=== PATIENT | female | born 1990 | race Caucasian/White ===

== ENCOUNTER 2017-11-07 15:41 | Emergency (ER) | payer MEDICAID ==
[~2017-11-07] VITALS: Ht 154.9 cm; Wt 56.8 kg
[2017-11-07 16:28] VITALS: BP 124/79
--- NOTE | 2017-11-07 16:36 | NUR ---
PT AMBULATED TO [facility]
--- NOTE | 2017-11-07 16:37 | NUR ---
PATIENT PRESENTS TO ED WITH C/O COUGH, SOB, CP, SORE THROAT X 2 DAYS; ADMITTED ON [place] LAST MONTH FOR 2 DAYS FOR SOB HX; ASTHMA, BRONCHITIS RX; QVAR INHALER; DENIES N/V/D; SKIN IS PINK/WARM/DRY; AAOX4 WITH EVEN AND STEADY GAIT; BL EXP WHZ, RHONCHI; HR EVEN AND REGULAR; PT DENIES ANY FEVER AT THIS TIME; PATIENT STATES PAIN OF 8/10 AT THIS TIME; VSS; ER MD MADE AWARE OF PT STATUS.
[2017-11-07] MEDS ORDERED: predniSONE 20 MG TAB PO ONE (16:40)
[2017-11-07] MEDS ORDERED: ALBUTEROL SULFATE/IPRATROPIU 3 ML SOL IH ONE (16:40)
[2017-11-07] MEDS ORDERED: ALBUTEROL 0.083% 2.5 MG/3 ML NEBU INH ONE (16:40)
--- NOTE | 2017-11-07 16:49 | NUR ---
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
--- NOTE | 2017-11-07 16:51 | NUR ---
RT AT BEDSIDE
--- NOTE | 2017-11-07 17:45 | NUR ---
Patient being evaluated by physician at bedside.
[2017-11-07 18:03] VITALS: BP 124/79
--- NOTE | 2017-11-07 18:03 | NUR ---
Patient discharged with v/s stable. Written and verbal after care instructions given and explained. Patient alert, oriented and verbalized understanding of instructions. Ambulatory with steady gait. All questions addressed prior to discharge. ID band removed. Patient advised to follow up with PMD. Rx of PREDNISONE, ALBUTEROL, MOTRIN given. Patient educated on indication of medication including possible reaction and side effects. Opportunity to ask questions provided and answered.
== END 2017-11-07 18:03 | disposition home or self-care (01) ==
LOC: MED 15:41
DX: J45.901 Unspecified asthma with (acute) exacerbation (principal)
CPT/HCPCS: 94640; 99283; J7512; J7613; J7620

== ENCOUNTER 2017-12-28 22:36 | Emergency (ER) | payer MEDICAID ==
[~2017-12-28] VITALS: Ht 160 cm; Wt 57.2 kg
[2017-12-28 22:40] VITALS: BP 142/75
[2017-12-28] MEDS ORDERED: ALBUTEROL 0.083% 2.5 MG/3 ML NEBU INH ONE (22:40)
[2017-12-28] MEDS ORDERED: predniSONE 20 MG TAB PO ONE (22:40)
[2017-12-28] MEDS ORDERED: ALBUTEROL SULFATE/IPRATROPIU 3 ML SOL IH ONE (22:40)
--- NOTE | 2017-12-28 22:40 | NUR ---
ASSUMED CARE OF PT AT THIS TIME. C/O ACUTE ASTHMA EXACERBATION X 5 HOURS. PT IN MODERATE DISTRESS; HOWEVER, SPEAKS IN FULL SENTENCES. AAOX4 WITH EVEN AND STEADY GAIT; PATIENT STATES PAIN OF 0/10 AT THIS TIME; VSS; PATIENT POSITIONED FOR COMFORT; HOB ELEVATED; BEDRAILS UP X2; BED DOWN. ER MD MADE AWARE OF PT STATUS. WILL CONTINUE TO MONITOR.
--- NOTE | 2017-12-28 22:40 | NUR ---
AMBULATED TO ER BED 7
[2017-12-28 23:15] VITALS: BP 110/67
--- NOTE | 2017-12-28 23:15 | NUR ---
Patient discharged with v/s stable. Written and verbal after care instructions given and explained. Patient alert, oriented and verbalized understanding of instructions. Ambulatory with steady gait. All questions addressed prior to discharge. ID band removed. Patient advised to follow up with PMD. Rx of PREDNISONE AND ALBUTEROL given. Patient educated on indication of medication including possible reaction and side effects. Opportunity to ask questions provided and answered.
== END 2017-12-28 23:15 | disposition home or self-care (01) ==
LOC: MED 22:36
DX: J45.901 Unspecified asthma with (acute) exacerbation (principal)
CPT/HCPCS: 94640; 99283; J7512; J7613; J7620

== ENCOUNTER 2018-06-27 20:48 | Emergency (ER) | payer MEDICAID ==
[~2018-06-27] VITALS: Ht 154.9 cm; Wt 57.6 kg
[2018-06-27 20:52] VITALS: BP 113/78
--- NOTE | 2018-06-27 20:55 | NUR ---
PATIENT PRESENTS TO ED WITH ASTHMA EXACERBATION. PT STATES THAT FOR THE LAST 3 DAYS HER INHALER IS NOT HELPING. DENIES N/V/D; SKIN IS PINK/WARM/DRY; AAOX4 WITH EVEN AND STEADY GAIT; WHEEZING TO BILATERAL UPPER LUNGS; HR EVEN AND REGULAR; PT DENIES ANY FEVER; PATIENT STATES PAIN OF 0/10 AT THIS TIME; VSS; PATIENT POSITIONED FOR COMFORT; HOB ELEVATED; BEDRAILS UP X2; BED DOWN. ER MD MADE AWARE OF PT STATUS.
--- NOTE | 2018-06-27 20:57 | NUR ---
PT TAKEN TO BED 11
[2018-06-27] MEDS ORDERED: ALBUTEROL SULFATE/IPRATROPIU 3 ML SOL IH ONE ×3 (21:00→21:20)
--- NOTE | 2018-06-27 21:06 | NUR ---
Respiratory Therapist at bedside for respiratory intervention.
[2018-06-27] MEDS ORDERED: methylPREDNISolone SS 125 MG in WATER STERILE 2 ML IM ONE (21:10)
[2018-06-27 22:05] VITALS: BP 110/72
--- NOTE | 2018-06-27 22:06 | NUR ---
Patient discharged with v/s stable. Written and verbal after care instructions given and explained. Patient alert, oriented and verbalized understanding of instructions. Ambulatory with steady gait. All questions addressed prior to discharge. ID band removed. Patient advised to follow up with PMD. Rx of prednisone, albuterol given. Patient educated on indication of medication including possible reaction and side effects. Opportunity to ask questions provided and answered.
== END 2018-06-27 22:06 | disposition home or self-care (01) ==
LOC: MED 20:48
DX: J45.901 Unspecified asthma with (acute) exacerbation (principal)
CPT/HCPCS: 94640; 96372; 99284; J2930; J7620

== ENCOUNTER 2018-08-20 04:47 | Emergency (ER) | payer MEDICAID ==
[~2018-08-20] VITALS: Ht 154.9 cm; Wt 59.9 kg
--- NOTE | 2018-08-20 04:52 | NUR ---
Patient being evaluated by physician at bedside.
[2018-08-20] MEDS ORDERED: ALBUTEROL SULFATE/IPRATROPIU 3 ML SOL IH ONE ×2 (04:55)
[2018-08-20 04:57] VITALS: BP 125/79
--- NOTE | 2018-08-20 05:00 | NUR ---
PT BIB SELF C/O SOB, PT ON ARRIVAL RR LABORED AND TACHYPNEA, BL BS WHEEZES ON EXPIRATION THROUGHOUT. PT HAS HX OF ASTHMA. PT SPEAKING ONLY A FEW WORDS AT A TIME, AND ANXIOUS. ER MD AWARE OF PT STATUS.
--- NOTE | 2018-08-20 05:05 | NUR ---
RT AT BEDSIDE FOR TX, PT RR EVEN AND UNALBORED, PT APPEARS TO BE IN NO RESPIRATORY DISTRESS AT THIS TIME, VSS, WILL CONTINUE TO MONITOR.
[2018-08-20] MEDS ORDERED: methylPREDNISolone SS 125 MG in WATER STERILE 2 ML IM ONE (05:15)
[2018-08-20] MEDS ORDERED: ALBUTEROL 0.083% 2.5 MG/3 ML NEBU INH ONE (05:30)
--- NOTE | 2018-08-20 05:55 | NUR ---
Patient discharged with v/s stable. Written and verbal after care instructions given and explained. Patient alert, oriented and verbalized understanding of instructions. Ambulatory with steady gait. All questions addressed prior to discharge. ID band removed. Patient advised to follow up with PMD. Rx of PRENISONE, ALBUTEROL given. Patient educated on indication of medication including possible reaction and side effects. Opportunity to ask questions provided and answered.
[2018-08-20 05:56] VITALS: BP 119/80
== END 2018-08-20 05:56 | disposition home or self-care (01) ==
LOC: MED 04:47
DX: J45.901 Unspecified asthma with (acute) exacerbation (principal)
CPT/HCPCS: 36415; 71045; 87804; 94640; 96372; 99284; J2930; J7613; J7620; Q0092

== ENCOUNTER 2019-10-25 07:33 | Emergency (ER) | payer MEDICAID ==
[~2019-10-25] VITALS: Ht 154.9 cm; Wt 59.0 kg
--- NOTE | 2019-10-25 07:36 | NUR ---
Patient ambulated to bed 4. RN evaluating patient at bedside.
[2019-10-25] MEDS ORDERED: predniSONE 20 MG TAB PO ONE (07:40)
[2019-10-25] MEDS ORDERED: ALBUTEROL 0.083% 2.5 MG/3 ML NEBU INH ONE ×2 (07:40→08:30)
[2019-10-25] MEDS ORDERED: ALBUTEROL SULFATE/IPRATROPIU 3 ML SOL IH ONE ×2 (07:40→08:30)
--- NOTE | 2019-10-25 07:40 | NUR ---
29 Y/O FEMALE C/O ASTHMA EXACERBATION THAT STARTED THIS MORNING. STATES SHE WAS FEELING SOB YESTERDAY, INCREASING THROUGHOUT THE NIGHT. RR DEEP, LABORED, TACHYPNIC. AUDIBLE WHEEZING HEARD UPON INHALATION. MOIST COUGH NOTED. SITTING UPRIGHT POSITIONED FOR COMFORT, O2 SAT MONITOR PLACED ON PT. VSS MEDHX: ASTHMA ALLERIGES: CATHERINEA
--- NOTE | 2019-10-25 07:44 | NUR ---
Breathing treatment administered by respiratory therapist at bedside.
--- NOTE | 2019-10-25 08:04 | NUR ---
BREATH SOUNDS COARSE AFTER BREATHING TREATMENT FINISHED. EASIER WORK OF BREATHING. VSS. WILL CONTINUE TO MONITOR
--- NOTE | 2019-10-25 08:04 | NUR ---
POST [facility] THERAPY PLACED BACK ON SUPPLEMENTAL OXYGEN AT 2 LPM VIA YAN PYLE/RN NOTIFIED
--- NOTE | 2019-10-25 08:28 | NUR ---
Secondary breathing treatment administered by respiratory therapist at bedside.
--- NOTE | 2019-10-25 08:46 | NUR ---
SATURATION 100% ON FIO2 OF 28%/2 LPM VIA NC POST [facility]N THERAPY PLACED ON ROOM AIR [place] PYLE/RN NOTIFIED RN TO MONITOR
[2019-10-25 08:53] VITALS: BP 106/62
--- NOTE | 2019-10-25 08:54 | NUR ---
Patient discharged with v/s stable. Written and verbal after care instructions given and explained. Patient alert, oriented and verbalized understanding of instructions. Ambulatory with steady gait. All questions addressed prior to discharge. ID band removed. Patient advised to follow up with PMD. Rx of PREDNISONE AND ALBUTEROL FOR NEBULIZER given. Patient educated on indication of medication including possible reaction and side effects. Opportunity to ask questions provided and answered.
== END 2019-10-25 08:54 | disposition home or self-care (01) ==
LOC: MED 07:33
DX: J45.909 Unspecified asthma, uncomplicated (principal)
CPT/HCPCS: 94640; 99284; J7512; J7613; 96372; 99283; 99285

== ENCOUNTER 2022-07-04 02:51 | Emergency (ER) | payer MEDICAID ==
[~2022-07-04] VITALS: Ht 154.9 cm; Wt 56.7 kg
[2022-07-04 02:53] VITALS: BP 124/68
[2022-07-04] MEDS ORDERED: ALBUTEROL SULFATE/IPRATROPIU 3 ML SOL IH ONE (03:00)
[2022-07-04] MEDS ORDERED: NACL 0.9% 1,000 ML IV ONE (03:00)
[2022-07-04] MEDS ORDERED: methylPREDNISolone SS 125 MG/2 ML VIAL IVP ONE (03:00)
--- NOTE | 2022-07-04 03:00 | NUR ---
PT TO BED #10
--- NOTE | 2022-07-04 03:30 | NUR ---
Patient, A/Ox4, resting comfortably in bed, chest rise and fall symmetrical, no s/s of distress.
--- NOTE | 2022-07-04 04:10 | NUR ---
Patient, A/Ox4, resting comfortably in bed, chest rise and fall symmetrical, no s/s of distress.
[2022-07-04] MEDS ORDERED: ALBU0.0912 IH (04:12)
[2022-07-04] MEDS ORDERED: PRED20TA6 PO (04:12)
[2022-07-04] MEDS ORDERED: PRON INH (04:12)
[2022-07-04 04:16] VITALS: BP 129/81
== END 2022-07-04 04:15 | disposition home or self-care (01) ==
LOC: MED 02:51
DX: J45.901 Unspecified asthma with (acute) exacerbation (principal); Z79.899 Other long term (current) drug therapy
CPT/HCPCS: 94640; 96361; 96374; 99283; J2930

== ENCOUNTER 2023-08-18 23:47 | Emergency (ER) | payer MEDICAID ==
[~2023-08-18] VITALS: Ht 157.5 cm; Wt 56.7 kg
[~2023-08-18 23:47] MED LIST: ALBU0.0912 IH; PRED20TA6 PO; PRON INH
[2023-08-18 23:59] VITALS: BP 147/63; PULSE 137; RESP 24; TEMP 97.4; O2SAT 85
[2023-08-19] MEDS ORDERED: ALBUTEROL 0.083% 2.5 MG/3 ML NEBU INH ONE ×3 (00:23→00:50)
[2023-08-19] MEDS ORDERED: NACL 0.9% 1,000 ML IV ONE (00:25)
[2023-08-19] MEDS ORDERED: methylPREDNISolone SS 125 MG in WATER STERILE 2 ML IV ONE ×2 (00:25→00:50)
[2023-08-19] MEDS ORDERED: methylPREDNISolone SS 125 MG/2 ML VIAL ONE ×2 (00:37→00:46)
[2023-08-19 00:38] VITALS: PULSE 127; RESP 28; O2SAT 95
[2023-08-19] MEDS ORDERED: PRED20TA5 PO (01:44)
[2023-08-19] MEDS ORDERED: FLUT1DSK2 IH (01:44)
[2023-08-19] MEDS ORDERED: ALBU0.0912 INH (01:44)
== END 2023-08-19 01:48 | disposition home or self-care (01) ==
LOC: MED 23:47
DX: J45.901 Unspecified asthma with (acute) exacerbation (principal); Z79.899 Other long term (current) drug therapy
CPT/HCPCS: 94640; 96361; 96374; 99283; J2930; J7030; J7613

== ENCOUNTER 2023-12-02 00:27 | Emergency (ER) | payer MEDICAID, OTHER ==
[~2023-12-02] VITALS: Ht 154.9 cm; Wt 56.7 kg
[~2023-12-02 00:27] MED LIST changes: +ALBU0.0912 INH; +FLUT1DSK2 IH; +PRED20TA5 PO
[2023-12-02] MEDS: IPRATROPIUM 0.02% 0.5 MG/2.5 ML NEBU INH ONE (00:39)
[2023-12-02] MEDS: ALBUTEROL 0.083% 2.5 MG/3 ML NEBU INH ONE ×2 (00:39→02:05)
[2023-12-02 00:40] VITALS: PULSE 130; RESP 24; O2SAT 96
[2023-12-02 01:02] VITALS: O2SAT 96
[2023-12-02 01:07] VITALS: BP 132/78; PULSE 130; RESP 30; TEMP 98; O2SAT 90
[2023-12-02] MEDS ORDERED: methylPREDNISolone SS 125 MG in WATER STERILE 2 ML IV ONE (01:46)
[2023-12-02 02:05] VITALS: PULSE 119; RESP 22; O2SAT 98
[2023-12-02] MEDS: NACL 0.9% 1,000 ML IV ONE (02:09)
[2023-12-02] MEDS: methylPREDNISolone SS 125 MG/2 ML VIAL IVP ONE (02:23)
[2023-12-02] MEDS: MAG SULF 2000 MG/WATER PREMIX 50 ML IV ONE (02:25)
[2023-12-02 02:42] LABS: ANION GAP 18.3 (8-16); CALCIUM 9.1 mg/dL (8.5-10.1); CARBON DIOXIDE 21.1 mmol/L (21-32); CREATININE 0.7 mg/dL (0.6-1.3); POTASSIUM 3.4 mmol/L (3.5-5.1)
[2023-12-02 02:44] LABS: BASOPHILS # (AUTO) 0.1 K/uL (0.00-0.22); BASOPHILS % (AUTO) 0.9 % (0.0-2.0); EOSINOPHILS # (AUTO) 0.5 K/uL (0-0.4); EOSINOPHILS % (AUTO) 5.9 % (0.0-4.0); HEMATOCRIT 32.7 % (36-48); HEMOGLOBIN 10.9 g/dL (12.0-16.0); LYMPHOCYTES % (AUTO) 35.8 % (20.5-51.1); MEAN CORPUSCULAR HEMOGLOBIN 28 pg (27-31); MEAN CORPUSCULAR HGB CONC 33 g/dL (33-37); MEAN CORPUSCULAR VOLUME 83.8 fL (80-94); MONOCYTES # (AUTO) 0.9 K/uL (0.8-1.0); NEUTROPHILS % (AUTO) 47.4 % (42.2-75.2); PLATELET COUNT (AUTO) 287 K/uL (140-450); WHITE BLOOD COUNT (AUTO) 8.5 K/uL (4.8-10.8)
[2023-12-02 02:48] LABS: ALBUMIN 3.7 g/dL (3.4-5.0); TOTAL BILIRUBIN 0.2 mg/dL (0.0-1.0); TOTAL PROTEIN, SERUM 7.8 g/dL (6.4-8.2)
[2023-12-02 02:55] LABS: LACTIC ACID 2.6 mmol/L (0.4-2.0)
[2023-12-02 03:21] VITALS: BP 132/78; PULSE 119; RESP 22; TEMP 98; O2SAT 98
== END 2023-12-02 03:21 | disposition home or self-care (01) ==
LOC: MED 00:27
DX: J45.901 Unspecified asthma with (acute) exacerbation (principal); Z79.899 Other long term (current) drug therapy
CPT/HCPCS: 36415; 71045; 80048; 80076; 83605; 85025; 87040; 94640; 96365; 96375; 99284; J2930; J7030; J7613; J7644; J3475